=== PATIENT | male | born 1965 | race African-American/Black ===

== ENCOUNTER 2025-02-03 06:03 | Observation (INO) | payer MEDICARE ==
[2025-02-02 10:23] LABS: BASOPHILS % 0.5 % (0.0-1.0); EOSINOPHILS # (AUTO) 0.1 (0.0-0.4); EOSINOPHILS % 1.7 % (0.0-6.0); HEMATOCRIT 45.1 % (38.2-49.6); HEMOGLOBIN 14.1 g/dL (14.0-18.0); LYMPHOCYTES # (AUTO) 1.9 (1.0-3.2); LYMPHOCYTES % 23.2 % (18.0-39.1); MEAN CORPUSCULAR HEMOGLOBIN 24.1 pg (28-32); MEAN CORPUSCULAR HGB CONC 31.3 g/dL (31-35); MONOCYTES # (AUTO) 0.5 (0.2-0.8); MONOCYTES % 6.2 % (4.4-11.3); NEUTROPHILS # (AUTO) 5.7 (2.1-6.9); PLATELET COUNT 207 x10e3/uL (140-360); RED BLOOD COUNT 5.86 x10e6/uL (4.3-5.7); RED CELL DISTRIBUTION WIDTH 15.9 % (11.7-14.4); WHITE BLOOD COUNT 8.38 x10e3/uL (4.8-10.8)
[2025-02-02 10:35] LABS: INR 0.86; PROTHROMBIN TIME 12.5 seconds (11.9-14.5)
[2025-02-02 10:36] LABS: PARTIAL THROMBOPLASTIN TIME 25.7 seconds (23.8-35.5)
[2025-02-02 10:43] LABS: ANION GAP 12.3 mmol/L (8-16); CALCIUM 8.8 mg/dL (8.4-10.2); CREATININE, SERUM 1.01 mg/dL (0.72-1.25); POTASSIUM 4.3 mmol/L (3.5-5.1)
[~2025-02-03 06:03] MED LIST: ASPIRIN81 MG PO; BUPROPION HCL150 MG PO; CARBAMAZEPINE200 M3 PO; DILTIAZEM 24HR120 M1 PO; DIOVAN160 MG PO; FLOMAX0.4 MG PO; HYDROCHLOROTHIA25 MG PO; NAPROXEN250 MG PO
[2025-02-03] MEDS ORDERED: PROPOFOL IV EMULSION 10 MG/ML 20 ML VIAL ONE (10:28)
[2025-02-03] MEDS ORDERED: FENTANYL CITRATE/PF 100MCG/2 ML INJ ONE (10:28)
[2025-02-03] MEDS ORDERED: LIDOCAINE HCL 2% LOCAL INJ 5 ML SDV VIAL INJ ONE (10:28)
[2025-02-03] MEDS ORDERED: ROCURONIUM BROMIDE 1 ML IV ONE ×2 (10:28→11:43)
[2025-02-03] MEDS: LACTATED RINGER'S 1,000 ML ONE (10:45)
[2025-02-03] MEDS: CEFAZOLIN SODIUM 2 GM ONE (10:47)
[2025-02-03] MEDS ORDERED: LIDOCAINE HCL (LTA) 4 ML SOLN ONE (11:05)
[2025-02-03] MEDS ORDERED: ONDANSETRON HCL INJ 2MG/ML 2ML 2 MG/ML VIAL ONE (11:32)
[2025-02-03] MEDS ORDERED: DEXAMETHASONE SOD PHOS INJ 4 MG/ML SDV ONE (11:32)
[2025-02-03] MEDS ORDERED: ACETAMINOPHEN 1000 MG/100 ML 100 ML IV ONE (11:41)
[2025-02-03] MEDS ORDERED: SUGAMMADEX SODIUM 200 MG/2 ML VIAL IV ONE (11:51)
[2025-02-03] MEDS ORDERED: HYDROCODON-ACE1 EA12 PO (12:42)
[2025-02-03] MEDS ORDERED: ACETAMINOPHEN 325 MG TAB PO PRN (12:45)
[2025-02-03] MEDS ORDERED: MAGNESIUM/ALUMINUM/SIMETHICONE 30 ML UDC PO PRN (12:45)
[2025-02-03] MEDS ORDERED: ONDANSETRON HCL INJ 2MG/ML 2ML 2 MG/ML VIAL IV PRN (12:45)
[2025-02-03] MEDS ORDERED: ZOLPIDEM TARTRATE 5 MG TAB PO PRN (12:45)
[2025-02-03] MEDS ORDERED: Morphine 2mg Syringe 2 MG/ML SYR IV PRN (12:45)
[2025-02-03] MEDS ORDERED: CEPACOL SORE THROAT LOZENGES PO PRN (12:45)
[2025-02-03] MEDS ORDERED: HYDROMORPHONE 2MG/ML IV PRN (12:45)
[2025-02-03] MEDS ORDERED: PROMETHAZINE HCL (IM) 25 MG/ML VIAL IM PRN (12:45)
[2025-02-03] MEDS: FENTANYL CITRATE/PF 100MCG/2 ML INJ ONE (12:50)
[2025-02-03 13:00] VITALS: BP 125/89; PULSE 53; RESP 16; TEMP 97.5; O2SAT 98
[2025-02-03] MEDS: OXYCODONE/ACETAMINOPHEN 5-325 1 EACH TABLET PO PRN (13:45)
[2025-02-03] MEDS: CARISOPRODOL 350 MG TAB PO PRN (13:45)
[2025-02-03 16:34] LABS: BASOPHILS % 0.1 % (0.0-1.0); EOSINOPHILS % 0.1 % (0.0-6.0); HEMATOCRIT 41.9 % (38.2-49.6); HEMOGLOBIN 13.2 g/dL (14.0-18.0); LYMPHOCYTES # (AUTO) 0.7 (1.0-3.2); MEAN CORPUSCULAR HEMOGLOBIN 23.8 pg (28-32); MEAN CORPUSCULAR HGB CONC 31.5 g/dL (31-35); MEAN CORPUSCULAR VOLUME 75.5 fL (81-99); MONOCYTES # (AUTO) 0.1 (0.2-0.8); NEUTROPHILS # (AUTO) 8.2 (2.1-6.9); NEUTROPHILS % 90.6 % (38.7-80.0); PLATELET COUNT 196 x10e3/uL (140-360); RED BLOOD COUNT 5.55 x10e6/uL (4.3-5.7); RED CELL DISTRIBUTION WIDTH 16.1 % (11.7-14.4); WHITE BLOOD COUNT 9.08 x10e3/uL (4.8-10.8)
[2025-02-03 16:48] LABS: INR 0.88; PROTHROMBIN TIME 12.8 seconds (11.9-14.5)
[2025-02-03 16:49] LABS: PARTIAL THROMBOPLASTIN TIME 26.2 seconds (23.8-35.5)
[2025-02-03 16:55] LABS: ANION GAP 14.3 mmol/L (8-16); CALCIUM 9.3 mg/dL (8.4-10.2); CREATININE, SERUM 0.9 mg/dL (0.72-1.25); POTASSIUM 4.3 mmol/L (3.5-5.1)
[2025-02-03] MEDS: CARBAMAZEPINE 200 MG TAB.ER.12H PO SCH (17:49)
[2025-02-03] MEDS: LACTATED RINGER'S 1,000 ML IV SCH (17:50)
[2025-02-03 20:00] VITALS: BP 154/95; PULSE 60; RESP 18; TEMP 98.2; O2SAT 99
[2025-02-04] VITALS: BP 157/90; PULSE 55; RESP 18; TEMP 98; O2SAT 100
[2025-02-04 04:00] VITALS: BP 160/91; PULSE 78; RESP 18; TEMP 98.5; O2SAT 98
[2025-02-04 09:00] VITALS: BP 160/91; PULSE 78; RESP 18; TEMP 98.5; O2SAT 98
[2025-02-04 09:20] VITALS: BP 161/93; PULSE 61; RESP 18; TEMP 97.6; O2SAT 99
[2025-02-04] MEDS: HYDROCHLOROTHIAZIDE 25 MG TAB PO SCH (10:00)
[2025-02-04] MEDS: VALSARTAN 160 MG TAB PO SCH (10:00)
[2025-02-04] MEDS: TAMSULOSIN HCL 0.4 MG CAP PO SCH (10:00)
[2025-02-04 10:01] VITALS: BP 161/93; PULSE 61
[2025-02-04] MEDS: BUPROPION HCL 150 MG TABCR PO SCH (10:01)
[2025-02-04] MEDS: DILTIAZEM HCL ER 120 MG CAP PO SCH (10:01)
== END 2025-02-04 11:30 | disposition home or self-care (01) ==
LOC: OR 06:03 → PACU V 13:01 → MED/SURG 13:56
PROVIDERS: ADMIT Neurological Surgery; ATTEND Neurological Surgery
DX: M50.022 Cervical disc disorder at C5-C6 level with myelopathy (principal); M43.16 Spondylolisthesis, lumbar region; I10 Essential (primary) hypertension; N40.0 Benign prostatic hyperplasia without lower urinary tract symptoms; M19.90 Unspecified osteoarthritis, unspecified site; Z01.810 Encounter for preprocedural cardiovascular examination; Z01.812 Encounter for preprocedural laboratory examination; Z01.818 Encounter for other preprocedural examination
CPT/HCPCS: 20931; 22551; 22845; 36415 ×2; 71046; 72040; 80048 ×2; 85025 ×2; 85610 ×2; 85730 ×2; 86850; 86900; 88304; 93005; 99252; C1713 ×2; C1762; G0378 ×2; J0131; J0690 ×2; J1100; J2003; J2405; J2704; J3010; J7121; 76000